=== PATIENT | female | born 1990 | race Caucasian/White ===

== ENCOUNTER 2017-03-02 14:52 | Inpatient (IN) | payer OTHER ==
[~2017-03-02] VITALS: Ht 165.1 cm; Wt 101.5 kg
[2017-03-02] MEDS ORDERED: BIRTHCONTROL (16:03)
[2017-03-02 16:28] LABS: BASOPHIL COUNT 0.1 K/uL (0-0.1); EOSINOPHIL (%) 0.5 % (0-5); EOSINOPHIL COUNT 0.1 K/uL (0-0.3); IMMATURE GRANULOCYTE (%) 0.8 % (0.0-0.7); IMMATURE GRANULOCYTE COUNT 0.1 K/uL; INSTRUMENT ABS NEUTROPHIL CT 8.4 K/uL; LYMPHOCYTE COUNT 0.4 K/uL (1.0-2.8); MCH 28.1 PG (29.0-34.0); MCHC 32.6 G/DL (30.0-36.0); MCV 86.2 FL (83-99); MEAN PLAT.VOLUME 10.9 uM^3 (9.5-12.4); MONOCYTE (%) 10.7 % (3-12); MONOCYTE COUNT 1.1 K/uL (0-0.8); NEUTROPHIL COUNT 8.4 K/uL (1.8-6.4); PLATELET COUNT 313 K/uL (156-360); RBC DIS.WIDTH-CV 13.8 % (11.8-14.6); RBC DIS.WIDTH-SD 43.8 % (39-53); RED BLOOD COUNT 4.87 M/uL (3.80-5.20); WHITE BLOOD COUNT 10.1 K/uL (4.1-10.2)
[2017-03-02 16:37] LABS: CHLORIDE 107 mEq/L (99-109); POTASSIUM 3.8 mEq/L (3.7-5.4); SODIUM 138 mEq/L (136-147)
[2017-03-02 16:40] LABS: GLUCOSE 90 mg/dL (70-99)
[2017-03-02 16:41] LABS: ANION GAP 10 MEQ/L (2-14)
[2017-03-02 16:42] LABS: TOTAL BILIRUBIN 0.2 mg/dL (0.0-1.0)
[2017-03-02 16:43] LABS: ALKALINE PHOSPHATASE 58 IU/L (3-129); GFR ESTIMATE (CALCULATED) > 59 mL/min/
[2017-03-02 16:44] LABS: UREA NITROGEN (BUN) 8 mg/dL (9-23)
[2017-03-02 16:47] LABS: D-DIMER ELISA 0.61 mg/L FEU (< 0.57)
[2017-03-02 16:50] LABS: TROP-I INTERPRETATION NEGATIVE; TROPONIN-I < 0.01 ng/mL (0.0-0.30)
[2017-03-02 16:52] LABS: QUANTITATIVE HCG < 4.0 MIU/ML
[2017-03-02 17:38] LABS: ADD MIUA? YES; BILIRUBIN NEGATIVE; BLOOD NEGATIVE; COLOR YELLOW ((YELLOW)); GLUCOSE (STRIP) NEGATIVE; KETONES NEGATIVE; LEUKOCYTES LARGE; NITRITE NEGATIVE; PROTEIN (STRIP) NEGATIVE; SPECIFIC GRAVITY 1.014 (1.000-1.030); UROBILINOGEN 0.2 MG/DL (0.2-1.0)
[2017-03-02] MEDS ORDERED: SEASONIQUE 01 TABLET PO (17:58)
[2017-03-02 18:07] LABS: BACTERIA RARE /HPF; EPITHELIAL CELLS 1+ /HPF; MUCUS TRACE /LPF; RED BLOOD CELLS 0-5 /HPF (0-5); UCUL ADDED? NO; UNCLASSIFIED CASTS 0-5 /LPF; WHITE BLOOD CELLS 20-30 /HPF (0-5)
[2017-03-02 20:20] VITALS: BP 146/90
[2017-03-03] VITALS (7 sets, daily range): BP systolic 133–149; BP diastolic 71–93
[2017-03-03 04:30] LABS: INFLUENZA A VIRAL ANTIGEN POSITIVE; INFLUENZA B VIRAL ANTIGEN NEGATIVE
[2017-03-03 10:09] LABS: HEMATOCRIT 39.4 % (36.0-46.0); MCH 27.7 PG (29.0-34.0); MCV 86.6 FL (83-99); MEAN PLAT.VOLUME 11.4 uM^3 (9.5-12.4); PLATELET COUNT 270 K/uL (156-360); RBC DIS.WIDTH-CV 14.1 % (11.8-14.6); RBC DIS.WIDTH-SD 44.8 % (39-53); RED BLOOD COUNT 4.55 M/uL (3.80-5.20); WHITE BLOOD COUNT 8.5 K/uL (4.1-10.2)
[2017-03-03 10:28] LABS: ANION GAP 11 MEQ/L (2-14); CHLORIDE 109 MEQ/L (99-109); GFR ESTIMATE (CALCULATED) > 59 mL/min/; GLUCOSE 109 mg/dL (70-99); POTASSIUM 3.9 MEQ/L (3.7-5.4); SAMPLE HEMOLYSIS CHECK 0; SAMPLE ICTERIC CHECK 0; SAMPLE LIPEMIA CHECK 0; SODIUM 139 MEQ/L (136-147); UREA NITROGEN (BUN) 6 mg/dL (9-23)
[2017-03-04 04:13] VITALS: BP 145/84
[2017-03-04 07:54] VITALS: BP 124/89
[2017-03-04 11:33] VITALS: BP 139/95
[2017-03-04 11:33] LABS: TROP-I INTERPRETATION NEGATIVE; TROPONIN-I < 0.01 ng/mL (0.0-0.30)
[2017-03-04] MEDS ORDERED: AUGMENTIN875 MG PO (16:15)
[2017-03-04] MEDS ORDERED: OSELTAMIVIR PHO75 MG PO (16:15)
== END 2017-03-04 17:34 | disposition home or self-care (01) | DRG 871 ==
LOC: EME 14:52 → 5SOUTH 19:05 → EDOF 19:05 → 5SOUTH 20:22
PROVIDERS: Emergency Medicine; Hospitalist; Physician Assistant Medical
DX: A41.9 Sepsis, unspecified organism (principal); N39.0 Urinary tract infection, site not specified; J10.00 Influenza due to other identified influenza virus with unspecified type of pneumonia; J18.9 Pneumonia, unspecified organism; E66.9 Obesity, unspecified; Z68.37 Body mass index [BMI] 37.0-37.9, adult
CPT/HCPCS: 71020; 71275; 74176; 80048; 80053; 81003; 83605; 84443; 84484; 84702; 85025; 85027; 85379; 87040; 87086; 87502; 87651 90; 93005; 93970; 99281; 99285; J0456; J0696; J1644; J1885; J7030; J7050